=== PATIENT | female | born 1985 | race Caucasian/White ===

== ENCOUNTER 2020-09-06 12:40 | Emergency (ER) | payer MEDICAID ==
[~2020-09-06] VITALS: Ht 157.5 cm; Wt 81.6 kg
[~2020-09-06 12:40] MED LIST: CYCL-10 PO; HYDR-3919 PO; IBUP-1971 PO
[2020-09-06 12:53] VITALS: BP_SYST 124
[2020-09-06] MEDS: AMPICILLIN SODIUM/SULBACTAM NA 3 GM in NS 100 ML IV ONE (13:15)
[2020-09-06] MEDS ORDERED: AMPICILLIN SODIUM/SULBACTAM NA 3 GM VIAL ONE (13:16)
[2020-09-06] MEDS: KETOROLAC TROMETHAMINE 30 MG VIAL IVP ONE (13:16)
[2020-09-06] MEDS ORDERED: AMOX-426 PO (13:48)
[2020-09-06] MEDS ORDERED: NAPR-1172 PO (13:48)
[2020-09-06] MEDS: DIPH-TET-PERTUS Vaccine 0.5 ML VIAL (ADACEL) I.M. ONE (13:50)
[2020-09-06 14:09] VITALS: BP_SYST 118
== END 2020-09-06 14:09 | disposition home or self-care (01) ==
LOC: SED 12:40
DX: S51.852A Open bite of left forearm, initial encounter (principal); Z79.899 Other long term (current) drug therapy; W54.0XXA Bitten by dog, initial encounter; Y93.89 Activity, other specified; Y92.89 Other specified places as the place of occurrence of the external cause; Y99.8 Other external cause status
CPT/HCPCS: 36415; 87040; 90471; 90715; 96365; 96375; 99284; J0295; J1885

== ENCOUNTER 2022-11-10 04:12 | Emergency (ER) | payer MEDICAID ==
[~2022-11-10] VITALS: Ht 160 cm; Wt 83.9 kg
[~2022-11-10 04:12] MED LIST changes: +AMOX-426 PO; -CYCL-10 PO; +CYCL10TA24 PO; +NAPR-1172 PO
[2022-11-10 04:29] VITALS: BP_SYST 132
[2022-11-10] MEDS ORDERED: MORPHINE 4 MG INJ. 4 MG/ML VIAL IM ONE (04:45)
[2022-11-10] MEDS ORDERED: HYDR-3917 PO (04:59)
[2022-11-10] MEDS ORDERED: IBUP-1971 PO (04:59)
[2022-11-10] MEDS ORDERED: ONDANSETRON 4 MG ODT TAB PO ONE (05:15)
[2022-11-10] MEDS ORDERED: ONDA8TAB60 PO (06:09)
[2022-11-10 06:15] VITALS: BP_SYST 132
== END 2022-11-10 06:15 | disposition home or self-care (01) ==
LOC: SED 04:12
DX: M54.50 Low back pain, unspecified (principal); Z79.899 Other long term (current) drug therapy
CPT/HCPCS: 99283; 81025; 96372; Q0162; J2270

== ENCOUNTER 2022-11-12 15:08 | Emergency (ER) | payer MEDICAID ==
[~2022-11-12] VITALS: Ht 160 cm; Wt 84.8 kg
[~2022-11-12 15:08] MED LIST changes: +HYDR-3917 PO; +ONDA8TAB60 PO
[2022-11-12] MEDS ORDERED: HYDROcodone/ACETAMIN 10-325 MG TAB PO ONE (15:15)
[2022-11-12] MEDS ORDERED: KETOROLAC TROMETHAMINE 60 MG/2 ML VIAL IM ONE (15:15)
--- NOTE | 2022-11-12 15:15 | NUR ---
Patient to ER bed 7 to gown for evaluation. Side rails up. Report given to SAMUEL DEVINE.
--- NOTE | 2022-11-12 15:16 | NUR ---
Patient given an icepack for 9/10 right hip pain
--- NOTE | 2022-11-12 15:17 | NUR ---
Patient BIB ambulance from home. Chief Complaint: Right Hip Pain 9/10, worsening from visit on 11/10/22. Patient placed in the bed on the monitor. Patient is a&ox4 and stable.
[2022-11-12 15:26] VITALS: BP_SYST 134
--- NOTE | 2022-11-12 15:44 | NUR ---
Urine taken to lab
--- NOTE | 2022-11-12 15:52 | NUR ---
Patient being taken to CT now.
[2022-11-12] MEDS ORDERED: OXYC-128 PO (17:14)
[2022-11-12] MEDS ORDERED: IBUP-1969 PO (17:14)
[2022-11-12 17:45] VITALS: BP_SYST 114
--- NOTE | 2022-11-12 17:45 | NUR ---
Patient given written and verbal discharge instructions and verbalizes understanding. ER MD discussed with patient the results and treatment provided. Patient in stable condition. ID arm band removed. IV catheter removed intact and dressing applied, no active bleeding. Rx sent to pharmacy on file. Patient educated on pain management and to follow up with PMD. Opportunity for questions provided and answered. Patient discharged a&ox 4 and stable. Patient wheeled out by in wheel chair.
== END 2022-11-12 17:45 | disposition home or self-care (01) ==
LOC: SED 15:08
DX: M54.31 Sciatica, right side (principal); M54.50 Low back pain, unspecified; M79.661 Pain in right lower leg; Z79.899 Other long term (current) drug therapy
CPT/HCPCS: 99283; 72100; 81025; 96372; J1885